=== PATIENT | male | born 1960 ===

== ENCOUNTER 2019-10-15 15:10 | Emergency (ER) | payer MEDICAID ==
--- NOTE | 2019-10-15 18:13 | Emergency Department Report ---
Blank Doc - Documentation Documentation: 58-year-old male that presents with generalized weakness. This initial assessment/diagnostic orders/clinical plan/treatment(s) is/are subject to change based on patient's health status, clinical progression and re- assessment by fellow clinical providers in the ED. Further treatment and workup at subsequent clinical providers discretion. Patient/guardians urged not to elope from the ED as their condition may be serious if not clinically assessed and managed. Initial orders include: 1- Patient sent to [facility] for further evaluation and treatment 2- labs 3- UA
[2019-10-15 18:18] VITALS: BP 147/96
[2019-10-15 18:50] LABS: Hemoglobin 10.9 gm/dl (11.8-15.2); Mean Corpuscular HGB Conc 33 % (32-34); Mean Corpuscular Volume 88 fl (84-94); Red Blood Count 3.76 M/mm3 (3.65-5.03); Red Cell Distribution Width 15.5 % (13.2-15.2)
[2019-10-15 19:02] LABS: Platelet Count 22 K/mm3 (140-440)
[2019-10-15 19:12] LABS: Albumin 3.8 g/dL (3.9-5); Calcium 9.2 mg/dL (8.4-10.2)
[2019-10-15 19:34] LABS: Anisocytosis 1+; Band Neutrophils # (Manual) 0.1 K/mm3; Basophils % (Manual) 0 % (0.0-1.8); Large Platelets 1+; Ovalocytes 2+; Tear Drop Cells 2+; Total Cells Counted 100
[2019-10-15] MEDS ORDERED: ASPIRIN 325 MG TAB PO ONE (22:13)
[2019-10-15] MEDS ORDERED: SODIUM CHLORIDE 0.9% 1000 ML 1,000 ML IV ONE (22:13)
--- NOTE | 2019-10-15 22:49 | XRay Report ---
CHEST 2 VIEWS INDICATION: chest pain. COMPARISON: None. FINDINGS: Support devices: None. Heart: Within normal limits. Lungs/Pleura: No acute air space or interstitial disease. No significant pleural effusion. IMPRESSION: No acute findings. Signer Name: Heladio Haddad MD Signed: 10/15/2019 10:44 PM Workstation Name: [id number]
[2019-10-16 00:21] LABS: Bilirubin,Urine NEG (Negative); Blood,Urine MOD (Negative); Color,Urine Yellow (Yellow); Granular Casts,Urine 3 /LPF; Mucus,Urine FEW /HPF; Urobilinogen,Urine < 2.0 mg/dL (<2.0)
[2019-10-16 00:23] LABS: Protein,Urine >500 mg/dL (Negative)
--- NOTE | 2019-10-16 04:31 | Emergency Department Report ---
ED General Adult HPI - General Chief complaint: Weakness Stated complaint: WEAKNESS Time Seen by Provider: 10/15/19 18:12 Source: patient, EMS Mode of arrival: Wheelchair Limitations: No Limitations - History of Present Illness Initial comments: Patient is a 58-year-old -[place] male with a history of HIV and was noncompliant with his medications presents to the ED via EMS accompanied by acute onset persistent diffuse generalized weakness for the last 1 week, worse in the last 4 days. Patient also complains of lack of appetite for the last 2 days. Patient denies fever, chills, cough, nausea, vomiting, chest pain, shortness of breath, abdominal pain, headache, dysuria, urinary frequency and urgency, change in vision or loss of consciousness or syncope. MD Complaint: Generalized weakness; lack of appetite -: Sudden, week(s) (2) Location: chest, back Radiation: non-radiation Severity scale (0 -10): 0 Quality: dull Consistency: constant Improves with: none Worsens with: none Associated Symptoms: denies other symptoms, loss of appetite, malaise, weakness. denies: confusion, chest pain, cough, diaphoresis, fever/chills, headaches, nausea/vomiting, rash, seizure, shortness of breath, syncope Treatments Prior to Arrival: none - Related Data Previous Rx's Medication Instructions Recorded Last Taken Type Ondansetron [Zofran ODT TAB] 8 mg PO Q8HR PRN #20 tab.rapdis 10/16/19 Unknown Rx Allergies Allergy/AdvReac Type Severity Reaction Status Date / Time No Known Allergies Allergy Verified 10/15/19 15:20 ED Review of Systems ROS: Stated complaint: WEAKNESS Other details as noted in HPI Constitutional: denies: chills, fever Eyes: denies: eye pain, eye discharge, vision change ENT: denies: ear pain, throat pain Respiratory: denies: cough, shortness of breath, wheezing Cardiovascular: denies: chest pain, palpitations Endocrine: no symptoms reported Gastrointestinal: denies: abdominal pain, nausea, diarrhea Genitourinary: denies: urgency, dysuria Musculoskeletal: denies: back pain, joint swelling, arthralgia Skin: denies: rash, lesions Neurological: denies: headache, weakness, paresthesias Psychiatric: denies: anxiety, depression Hematological/Lymphatic: denies: easy bleeding, easy bruising ED Past Medical Hx - Past Medical History Previous Medical History?: Yes Hx HIV: Yes - Social History Smoking Status: Current Every Day Smoker Substance Use Type: None - Medications Home Medications: Home Medications Medication Instructions Recorded Confirmed Last Taken Type Ondansetron [Zofran ODT TAB] 8 mg PO Q8HR PRN #20 tab.rapdis 10/16/19 Unknown Rx ED Physical Exam - General Limitations: No Limitations General appearance: alert, in no apparent distress, anxious, cachectic - Head Head exam: Present: atraumatic, normocephalic, normal inspection - Eye Eye exam: Present: normal appearance, PERRL, EOMI Pupils: Present: normal accommodation - ENT ENT exam: Present: normal exam, normal orophraynx, mucous membranes moist, TM's normal bilaterally, normal external ear exam - Neck Neck exam: Present: normal inspection, full ROM - Respiratory Respiratory exam: Present: normal lung sounds bilaterally. Absent: respiratory distress, wheezes, rales, chest wall tenderness, accessory muscle use, decreased breath sounds - Cardiovascular Cardiovascular Exam: Present: regular rate, normal rhythm, normal heart sounds. Absent: systolic murmur, diastolic murmur, rubs, gallop - GI/Abdominal GI/Abdominal exam: Present: soft, normal bowel sounds. Absent: tenderness, rebound, hyperactive bowel sounds - Extremities Exam Extremities exam: Present: normal inspection, full ROM, normal capillary refill - Back Exam Back exam: Present: normal inspection, full ROM. Absent: tenderness, CVA tenderness (L), muscle spasm, paraspinal tenderness, vertebral tenderness - Neurological Exam Neurological exam: Present: alert, oriented X3, CN II-XII intact, normal gait, reflexes normal - Psychiatric Psychiatric exam: Present: normal affect, normal mood - Skin Skin exam: Present: warm, dry, intact, normal color. Absent: rash ED Course Vital Signs 10/15/19 18:17 Temperature 97.6 F Pulse Rate 99 H Respiratory 20 Rate Blood Pressure 147/96 O2 Sat by Pulse 95 Oximetry ED Medical Decision Making - Lab Data Result diagrams: 10/15/19 18:35 10/15/19 18:35 - Radiology Data Radiology results: report reviewed, image reviewed Chest x-ray shows no acute cardiopulmonary abnormalities or pneumonitis. - Medical Decision Making This is a 58-year-old male with a history of HIV and noncompliant with his medi cations who presents to the ED with generalized weakness and lack of appetite for 2 weeks, worse in the last 4 days. In the ED, patient is alert and oriented 3 and is not in distress but appears cachectic, older than his age and disheveled. Patient was treated in the ED with normal saline 1 L IV bolus and aspirin. Chest x-ray shows no acute cardiopulmonary abnormalities or pneumonitis. Lab test results were reviewed and all nonactionable except for leukopenia of 1.8 which is likely chronic this patient's chronic HIV positive status. Patient's case was discussed with the ED attending physician Dr. Len Miller who advised that the case be discussed with the hospitalist physician Dr. Barry to determine the plan of care. Dr. Barry advised the patient's case be discussed with infectious disease specialist for further direction. I paged and discussed the patient's case with Dr. Loaiza the infectious disease specialist front desk associate who advised the patient lab test results being normal except for the leukopenia 1.8, appears to be chronic due to his baseline chronic HIV-positive condition. Dr. Loaiza then advised that if there are no other acute finding the patient discharged home to follow-up with his infectious disease physician. The opinion of Dr. Loaiza was shared with the attending physician O agree with the plan of Discharge the patient home since the patient does not meet any admission criteria and that all his lab test results and imaging test results are nonactionable. On reevaluation, patient resting comfortably in the chair sleeping with no difficulty. Patient is sent home and advised to follow-up with his infectious disease specialist in the next 3-5 days for reevaluation or return to the ED immediately if symptoms get worse. - Differential Diagnosis Pneumonia; Anemia; AIDS complications; Sepsis; UTI; ACS Critical care attestation.: If time is entered above; I have spent that time in minutes in the direct care of this critically ill patient, excluding procedure time. ED Disposition Clinical Impression: Generalized weakness, Nausea, Chronic leukopenia Disposition: DC-01 TO HOME OR SELFCARE Is pt being admited?: No Does the pt Need Aspirin: No Condition: Stable Instructions: Weakness (ED) Additional Instructions: Take your regular medications, drink plenty of fluids and follow up with your primary care physician in 5-7 days for reevaluation. Return to the ED immediately if symptoms get worse. Prescriptions: Ondansetron [Zofran ODT TAB] 8 mg PO Q8HR PRN #20 tab.rapdis PRN Reason: Nausea Referrals: [facility] [Outside] - 3-5 Days Time of Disposition: 04:39 Print Language: HUNGARIAN
== END 2019-10-16 04:50 | disposition home or self-care (01) ==
LOC: ED 15:10
DX: D72.819 Decreased white blood cell count, unspecified (principal); R11.0 Nausea; F17.200 Nicotine dependence, unspecified, uncomplicated
CPT/HCPCS: 36415; 71046; 80053; 81001; 84484; 85007; 85025; 87086; 99284; J7030